=== PATIENT | male | born 1975 | race Caucasian/White ===

== ENCOUNTER 2018-01-18 20:50 | Emergency (ER) | payer OTHER ==
[2018-01-18] MEDS ORDERED: NS 500 ML IV ONE (21:08)
--- NOTE | 2018-01-18 21:15 | EDPHY ---
H & P Stated Complaint: L sided CP, Source: Patient Exam Limitations: No limitations - Personal History Current Tetanus/Diphtheria Vaccine: Yes - Medical/Surgical History Hx Asthma: No Hx Chronic Respiratory Disease: No Hx Diabetes: No Hx Cardiac Disease: No Hx Renal Disease: No Hx Cirrhosis: No Hx Alcoholism: No Hx HIV/AIDS: No Hx Splenectomy or Spleen Trauma: No Other PMH: Hypertension, hypercholesterolemia - Family History Significant Family History: No pertinent family hx - Social History Smoking Status: Never smoked Alcohol Use: Sober Drug Use: None Time Seen by Provider: 01/18/18 21:04 HPI/ROS: CHIEF COMPLAINT: Chest tightness HISTORY OF PRESENT ILLNESS: Patient is a 42-year-old man who comes to the emergency department complaining of chest tightness for the last 2 hr. He states that he has actually had the symptoms for about 2 days but they [place] They occasionally radiate to shoulder and neck as well. None to his back. No lightheadedness. No diaphoresis. No nausea vomiting. He saw his primary few days ago who suggested maybe it was heartburn. The patient states that he rarely gets heartburn. He states that he swims daily and never has trouble with exertion or breathing. Severity: Moderate Modifying factors: His symptoms have improved with rest and aspirin. REVIEW OF SYSTEMS: Constitutional: denies: chills, fever, recent illness, recent injury EENTM: denies: blurred vision, double vision, nose congestion Respiratory: denies: cough, shortness of breath Cardiac: See HPI denies: irregular heart rate, lightheadedness, palpitations Gastrointestinal/Abdominal: denies: abdominal pain, diarrhea, nausea, vomiting, blood streaked stools Genitourinary: denies: dysuria, frequency, hematuria, pain Musculoskeletal: denies: joint pain, muscle pain Skin: denies: lesions, rash, jaundice, bruising Neurological: denies: headache, numbness, paresthesia, tingling, dizziness, weakness Hematologic/Lymphatic: denies: blood clots, easy bleeding, easy bruising Immunologic/allergic: denies: HIV/AIDS, transplant 10 systems reviewed and negative except as noted EXAM: GENERAL: Well-appearing, well-nourished and in no acute distress. HEAD: Atraumatic, normocephalic. EYES: Pupils equal round and reactive to light, extraocular movements intact, sclera anicteric, conjunctiva are normal. ENT: TMs normal, nares patent, oropharynx clear without exudates. Moist mucous membranes. NECK: Normal range of motion, supple without lymphadenopathy or JVD. LUNGS: Breath sounds clear to auscultation bilaterally and equal. No wheezes rales or rhonchi. HEART: Regular rate and rhythm without murmurs, rubs or gallops. ABDOMEN: Soft, nontender, normoactive bowel sounds. No guarding, no rebound. No masses appreciated. BACK: No CVA tenderness, no spinal tenderness, step-offs or deformities EXTREMITIES: Normal range of motion, no pitting or edema. No clubbing or cyanosis. NEUROLOGICAL: Cranial nerves II through XII grossly intact. Normal speech, normal gait. 5/5 strength, normal movement in all extremities, normal sensation , normal reflexes PSYCH: Normal mood, normal affect. SKIN: Warm, dry, normal turgor, no visible rashes or lesions. (Gutierrez Martinez) Constitutional: Initial Vital Signs Temperature (C) 36.6 C 01/18/18 20:52 Heart Rate 85 01/18/18 20:52 Respiratory Rate 16 01/18/18 20:52 Blood Pressure 162/105 H 01/18/18 20:52 O2 Sat (%) 97 01/18/18 20:52 O2 Delivery Mode Room Air Allergies/Adverse Reactions: Penicillins Allergy (Verified 01/18/18 20:53) Home Medications: Medication Instructions Recorded NK [No Known Home Meds] 01/18/18 Medical Decision Making - Diagnostics Imaging: Discussed imaging studies w/ call taker Radiologist - Diagnostics EKG Interpretation: An EKG obtained and was read and documented in trace view. Please see trace view for full reading and report. Sinus rhythm, no acute ischemic changes ( Gutierrez Martinez) ED Course/Re-evaluation: 2353: Patient was signed over to me at 11:00 p.m. Shift change to follow up a 2nd troponin. Per Dr. Martinez if the 2nd troponin is negative the patient can be discharged home. I did go me with the patient he denies any chest pain or shortness of breath he states he feels fine here. Vital signs are stable. His 2nd troponin is negative. He feels comfortable going home and is eager to go home. I did discuss possible observation tonight if he felt more comfortable this however he has declined. 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 Additionally return precautions discussed return if worsening chest pain shortness of breath or not feeling well. 2- troponins. No ongoing chest pain. (Theodore Nunez) 10:00 p.m. the patient is asymptomatic currently. His lab work a, EKG and x- ray are reassuring. We discussed options 3 sure decision making we agreed to have him stay for repeat troponin. He is leaving town tomorrow for 2 days. If his repeat troponin is negative I recommended that he follow up with Cardiology or with his primary Dr. Knapp when he returns for further testing including possibly a stress test verses CT coronary artery study. Patient understands and agrees with this plan. I will transfer his care to Dr. Nunez at shift change. (Gutierrez Martinez) Differential Diagnosis: Partial list of the Differential diagnosis considered include but were not limited to; acute coronary disease, anxiety, musculoskeletal pain, GERD and although unlikely based on the history and physical exam, I also considered PE, pneumothorax, pneumonia. (Gutierrez Martinez) - Data Points Laboratory Results: Laboratory Results 01/18/18 21:07 01/18/18 21:07 Medications Given: Discontinued Medications Sodium Chloride (Ns) 500 mls @ 0 mls/hr IV EDNOW ONE; Wide Open PRN Reason: Protocol Stop: 01/18/18 21:09 Last Admin: 01/18/18 21:46 Dose: 500 mls Point of Care Test Results: Chemistry 01/18/18 01/18/18 23:23 21:12 POC Troponin I 0.02 ng/mL ng/mL 0.00 ng/mL ng/mL (0.00-0.08) (0.00-0.08) Departure - Departure Disposition: Home, Routine, Self-Care Clinical Impression: Chest pain Qualifiers: Chest pain type: unspecified Qualified Code(s): R07.9 - Chest pain, unspecified Condition: Fair Instructions: Chest Pain (ED) Referrals: Cris Torres MD [Medical Doctor] - 2-3 days without fail Liana Knapp MD [Primary Care Provider] - 2-3 days without fail
--- NOTE | 2018-01-18 21:16 | CPEKG ---
Test Reason : OPEN Blood Pressure : / mmHG Vent. Rate : 074 BPM Atrial Rate : 071 BPM P-R Int : 206 ms QRS Dur : 093 ms QT Int : 375 ms P-R-T Axes : 029 -10 015 degrees QTc Int : 416 ms Sinus rhythm Borderline prolonged IL interval Low voltage, precordial leads Confirmed by Gutierrez Martinez ([id number]) on 01/18/2018 9:15:58 PM Referred By: Confirmed By:Gutierrez Martinez
[2018-01-18 21:25] LABS: PLATELET COUNT 210 10^3/uL (150-400)
[2018-01-18 21:39] LABS: INR 0.88 (0.83-1.16); PROTIME(PATIENT) 12.2 SEC (12.0-15.0)
[2018-01-18 23:25] VITALS: BP 120/90
== END 2018-01-19 00:06 | disposition home or self-care (01) ==
DX: R07.9 Chest pain, unspecified (principal); I10 Essential (primary) hypertension; E78.00 Pure hypercholesterolemia, unspecified
CPT/HCPCS: 84484-PO